=== PATIENT | female | born 1975 | race African-American/Black ===

== ENCOUNTER 2020-04-07 13:27 | Emergency (ER) | payer OTHER ==
[2020-04-07 13:49] VITALS: BP 170/112; PULSE 83; TEMP 99.6; BMI 34.4
[2020-04-07] MEDS ORDERED: LIDOCAINE VISCOUS 2% ORAL/TOP 20 ML UNIT-DOSE CUP MM ONE (14:10)
[2020-04-07] MEDS ORDERED: KETOROLAC TROMETHAMINE 30 MG/1 ML VIAL IM ONE (14:10)
--- NOTE | 2020-04-07 14:17 | PDOC ---
History of Present Illness - General Chief Complaint: Toothache Stated Complaint: TOOTHACHE Time Seen by Provider: 04/07/20 13:48 History Source: Patient Exam Limitations: No Limitations - History of Present Illness Initial Comments: 04/07/20 14:10 44 year old female no Past medical history presenting with tooth pain for 3 days. Patient states that she has a dental appointment for extraction tomorrow but has not been able to tolerate pain. Patient's been taking Tylenol with only minimal relief denies any drooling trouble swallowing or facial asymmetry pt otherwise denies: fevers, chills, syncope, lightheadedness, dizziness, headaches, neck pain, chest pain, shortness of breath, palpitations, back pain, abdominal pain, nausea, vomiting, diarrhea, constipation. Past History - Medical History Allergies/Adverse Reactions: Allergies Allergy/AdvReac Type Severity Reaction Status Date / Time Penicillins Allergy blisters Verified 04/07/20 13:49 Home Medications: Ambulatory Orders Vit/Iron Fum/Folic AC [ Tablet] 1 each PO DAILY 02/02/16 Chlorhexidine Gluconate [Peridex -] 15 ml MM ONCE #1 bottle 04/07/20 Clindamycin [Cleocin -] 300 mg PO Q6HPO #28 capsule 04/07/20 Ibuprofen [Ibu] 600 mg PO TID 10 Days #30 tablet 04/07/20 Asthma: No Cancer: No Cardiac Disorders: No Diabetes: No HTN: No Seizures: No Thyroid Disease: No - Reproductive History Is Patient Now?: No - Immunization History Immunization Up to Date: Yes - Psycho-Social/Smoking History Smoking History: Current every day smoker Have you smoked in the past 12 months: Yes Number of Cigarettes Smoked Daily: 10 If you are a former smoker, when did you quit?: with Information on smoking cessation initiated: No 'Breaking Loose' booklet given: 09/22/15 - Substance Abuse Hx (Audit-C & DAST Scrn) How often the patient has a drink containing alcohol: 4 0r more times/wk Number of drinks the patient has on a typical day: 1 or 2 Score: In Men: 4 or > Positive; In Women: 3 or > Positive: 4 Screen Result (Pos requires Nsg. Audit-10AR): Positive In the last yr the pt used illegal drug/Rx for NonMed reason: No Score: Yes response is considered Positive: 0 Screen Result (Positive result requires Nsg. DAST-10): Negative *Physical Exam - Vital Signs Last Vital Signs Temp Pulse Resp BP Pulse Ox 99.6 F 83 16 170/112 H 100 04/07/20 13:42 04/07/20 13:42 04/07/20 13:42 04/07/20 13:42 04/07/20 13:42 - Physical Exam Gen: AAOx 3, no acute distress, comfortable, no signs of respiratory distress HENT: atraumatic, normocephalic with no laceration or contusion. Nasal mucosa without erythema. Oropharynx without erythema or exudates. Mucous membranes moist. Dental: poor dental hygiene with multiple cavities and cracked teeth, no drooling no trisumis, no facial asymmetry EYES: PERRL, EOM intact, conjunctiva pink NECK: supple; trachea midline; no JVD, no lymphadenopathy, or thyromegaly CV: RRR no murmurs, gallops, or rubs. CHEST: CTA b/l no wheezing, rales or rhonchi ABD: +BS/ND. no TTP; soft, no rebound, no guarding EXTREMITY: no cyanosis or erythema. 2+ dorsalis pedis, posterior tibial, and radial pulse. No pedal edema; no calf swelling or tenderness SKIN: no rash, warm and dry, no diaphoresis HEME: no purpura or ecchymosis NEURO: normal speech, CN II-XII intact, sensation intact, normal gait, no cerebellar deficits MS: 5/5 strength in all extremities, FROM intact in all extremities. Medical Decision Making - Medical Decision Making 04/07/20 14:14 44-year-old female with dental pain VSS except asymptomatic HTN Toradol and viscous lidocaine for symptomatic relief Pt reports pain relief with meds Pt is safe and stable for discharge ABX, Peridex and IBU sent to pts pharmacy Pt to follow up with dental JANKI Strict return precautions given Supportive care instructions explained and given to pt. Reasons to return emergently to ER explained and given. Importance of follow up with PMD and other specialists as indicated stressed to pt. Pt verbalized understanding of instructions. Pt to follow up with PMD in 2 days. Discharge - Discharge Information Problems reviewed: Yes Clinical Impression/Diagnosis: Pain, dental Condition: Stable Disposition: HOME - Additional Discharge Information Prescriptions: Clindamycin [Cleocin -] 300 mg PO Q6HPO #28 capsule Ibuprofen [Ibu] 600 mg PO TID 10 Days #30 tablet Chlorhexidine Gluconate [Peridex -] 15 ml MM ONCE #1 bottle - Follow up/Referral - Patient Discharge Instructions Patient Printed Discharge Instructions: DI for Dental Pain - Post Discharge Activity
[2020-04-07] MEDS ORDERED: KETOROLAC TROMETHAMINE 30 MG/1 ML VIAL ONE (14:35)
[2020-04-07] MEDS ORDERED: LIDOCAINE VISCOUS 2% ORAL/TOP 20 ML UNIT-DOSE CUP ONE (14:37)
== END 2020-04-07 14:44 | disposition home or self-care (01) ==
LOC: JERFT 13:27
PROC: 3E0233Z Introduction of Anti-inflammatory into Muscle, Percutaneous Approach (ICD-10-PCS; principal; 2020-04-07)
DX: K08.89 Other specified disorders of teeth and supporting structures (principal)
CPT/HCPCS: 99284-25

== ENCOUNTER 2021-08-20 13:24 | Emergency (ER) | payer OTHER ==
[2021-08-20 13:39] VITALS: BP 135/90; PULSE 78; TEMP 98.5; BMI 30.5
[2021-08-22 02:06] LABS: SARS-CoV-2 NAA Detected (Not Detected)
== END 2021-08-20 15:30 | disposition home or self-care (01) ==
LOC: JER 13:24
DX: U07.1 COVID-19 (principal)
CPT/HCPCS: 87804; 99283-25; C9803-CS; U0003; U0005